=== PATIENT | female | born 1990 | race Caucasian/White ===

== ENCOUNTER 2023-03-06 22:56 | Emergency (ER) | payer BC ==
[~2023-03-06] VITALS: Ht 167.6 cm; Wt 63.5 kg
[2023-03-06 23:08] VITALS: BP_SYST 123
[2023-03-06 23:20] VITALS: BP_SYST 123
[2023-03-06] MEDS ORDERED: KETOROLAC TROMETHAMINE 30 MG VIAL IVP ONE (23:30)
[2023-03-06] MEDS ORDERED: NACL 0.9% 1,000 ML IV ONE (23:30)
[2023-03-06] MEDS ORDERED: ONDANSETRON HCL 4 MG/2 ML VIAL IVP ONE (23:30)
[2023-03-06 23:35] LABS: BASOPHILS % (AUTO) 0.2 % (0.0-2.0); EOSINOPHILS # (AUTO) 0.2 K/uL (0.0-0.4); EOSINOPHILS % (AUTO) 1.4 % (0.0-4.0); HEMOGLOBIN 13.6 g/dL (12.0-16.0); LYMPHOCYTES # (AUTO) 2.3 K/uL (1.0-5.5); MEAN CORPUSCULAR HEMOGLOBIN 31 pg (27-31); MEAN CORPUSCULAR HGB CONC 34 % (32-36); MEAN CORPUSCULAR VOLUME 91 fL (79.0-98.0); MONOCYTES % (AUTO) 5.8 % (1.7-9.3); NEUTROPHILS # (AUTO) 12.9 K/uL (1.8-7.7); NEUTROPHILS % (AUTO) 78.6 % (40.0-70.0); PLATELET COUNT (AUTO) 301 K/uL (130-430); RED BLOOD CELL COUNT(AUTO) 4.42 MIL/uL (4.2-6.2); RED CELL DISTRIBUTION WIDTH 12.1 % (9.0-15.0); WHITE BLOOD COUNT (AUTO) 16.4 K/uL (4.8-10.8)
[2023-03-06 23:54] LABS: CALCIUM 8.7 mg/dL (8.4-11.0); CREATININE 0.72 mg/dL (0.55-1.30)
[2023-03-06 23:58] LABS: ALBUMIN 4.2 g/dL (3.4-4.8)
[2023-03-07] MEDS ORDERED: LOPERAMIDE HCL 2 MG CAPSULE PO ONE
[2023-03-07] MEDS ORDERED: SUCR1TAB2 PO (01:12)
[2023-03-07] MEDS ORDERED: FAMO-132 PO (01:12)
[2023-03-07] MEDS ORDERED: ONDA-8 TL (01:12)
[2023-03-07] MEDS ORDERED: SIME125T69 PO (01:12)
== END 2023-03-07 01:37 | disposition home or self-care (01) ==
LOC: SED 22:56
DX: A08.4 Viral intestinal infection, unspecified (principal)
CPT/HCPCS: 99284; 96374; 96361; 96375; 80053; 83690; 85025; 36415; J1885; J2405; J7030